=== PATIENT | female | born 1960 | race Caucasian/White ===

== ENCOUNTER → 2019-11-24 12:08 | Outpatient (BNVA) | payer OTHER, SELFPAY | PROVIDERS: Family Provider Family Medicine; PCP Family Medicine; Visit Provider Nurse Practitioner Family | DX: J02.9 Acute pharyngitis, unspecified (principal) | CPT/HCPCS: 87804 ==

== ENCOUNTER 2020-01-02 15:44 | Outpatient (CLI) | payer OTHER, SELFPAY ==
--- NOTE | 2020-01-02 15:53 | MM_ITS ---
WS: [id number] SCREENING DIGITAL MAMMOGRAM WITH CAD HISTORY: SCREENING COMPARISON: 12/07/2018, 03/24/2017 Bilateral CC and MLO views submitted. Computer aided detection analyzed. Breast composition: There are scattered areas of fibroglandular density. No suspicious masses, microc alcifications or architectural distortion. MM/[place] [id number] IMPRESSION: BI-RADS: 1-Negative FOLLOW UP: 1 Year Follow-up
== END 2020-01-02 15:45 | disposition home or self-care (01) ==
PROVIDERS: Family Provider Family Medicine; PCP Family Medicine; Visit Provider Family Medicine
DX: Z12.31 Encounter for screening mammogram for malignant neoplasm of breast (principal)
CPT/HCPCS: 77067

== ENCOUNTER → 2020-04-14 11:31 | Outpatient (BNVA) | payer OTHER, SELFPAY | PROVIDERS: Family Provider Family Medicine; PCP Family Medicine; Visit Provider Nurse Practitioner Family | DX: K52.9 Noninfective gastroenteritis and colitis, unspecified (principal); R39.9 Unspecified symptoms and signs involving the genitourinary system | CPT/HCPCS: 81000; 87086 ==

== ENCOUNTER 2021-02-25 08:27 | Outpatient (CLI) | payer OTHER, SELFPAY ==
--- NOTE | 2021-02-25 08:48 | MM_ITS ---
WS: [id number] BILATERAL DIGITAL SCREENING MAMMOGRAPHY WITH CAD CLINICAL INFORMATION: SCREENING HISTORY: Screening mammogram. No current complaints. COMPARISON: January 02, 2020 TECHNIQUE: Bilateral CC and MLO views. FINDINGS: Scattered fibroglandular densities bilaterally. No suspicious focal mass, asymmetry, calcifications, or architectural distortion. No evidence of malignancy. MM/[place] [id number] IMPRESSION: BI-RADS: 1-Negative FOLLOW UP: 1 Year Follow-up Recommend return to annual screening mammography.
== END 2021-02-25 08:28 | disposition home or self-care (01) ==
PROVIDERS: PCP Family Medicine; Visit Provider Nurse Practitioner Family
DX: Z12.31 Encounter for screening mammogram for malignant neoplasm of breast (principal)
CPT/HCPCS: 77067

== ENCOUNTER 2022-03-16 11:10 | Outpatient (CLI) | payer OTHER, SELFPAY ==
--- NOTE | 2022-03-16 11:24 | MM_ITS ---
WS: [id number] SCREENING TOMOSYNTHESIS DIGITAL MAMMOGRAM WITH CAD HISTORY: SCREENING COMPARISON: 03/24/2017, 12/07/2018 and 02/25/2021 Bilateral CC and MLO views submitted. Computer aided detection analyzed. Breast composition: There are scattered areas of fibroglandular density. Curvilinear area of increase d density in the superior RIGHT breast seen only on the MLO projection. No corresponding abnormality on the CC projection. Due to the significant change since the prior study additional imaging is recom mended. MM/[place] [id number] IMPRESSION: BI-RADS: 0-Incomplete: Need additional imaging evaluation FOLLOW UP: Need Additional Imaging RIGHT breast: Spot compression views (MLO). True ML. Ultrasound to follow if ab normality persists.
== END 2022-03-16 11:11 | disposition home or self-care (01) ==
LOC: RAD 11:13
PROVIDERS: PCP Family Medicine; Visit Provider Family Medicine
DX: Z12.31 Encounter for screening mammogram for malignant neoplasm of breast (principal)
CPT/HCPCS: 77063; 77067

== ENCOUNTER 2022-03-24 14:20 | Outpatient (CLI) | payer OTHER, SELFPAY ==
--- NOTE | 2022-03-24 14:40 | US_ITS ---
WS: [id number] ADDITIONAL VIEWS RIGHT MAMMOGRAM WITH DIGITAL BREAST TOMOSYNTHESIS. RIGHT BREAST ULTRASOUND HISTORY: RT BREAST DENSITY COMPARISON: 03/16/2022, 02/25/2021 and 01/02/2020 RIGHT MAMMOGRAM: Spot compression views and true ML with digital breast tomosynthesis and SM. The asymmetry and increased density persists in the RIGHT breast above the nipple. There is very slig ht distortion. These findings are only identified on the MLO and ML views. RIGHT BREAST ULTRASOUND 2-D and color Doppler imaging submitted. Ultrasound is directed to the RIGHT breast from 10-2 o'clock. There is a band of dense fibroglandular tissue but no mass or shadowing. No cysts. US/US breast RT limited* [id number] IMPRESSION: BI-RADS: 3-Probably Benign FOLLOW UP: 6 Month Follow-up There is a band of increasing soft tissue density in the superior RIGHT breast. This is only seen on the lateral projections. The ultrasound and CC views are normal. There is no discrete mass for which biopsy should be recommended at thi s time. Due to the change in appearance of the breast 6 month RIGHT mammogram a nd possible ultrasound follow-up are recommended. [facility] the time of the examination.
== END 2022-03-24 14:21 | disposition home or self-care (01) ==
PROVIDERS: PCP Family Medicine; Visit Provider Family Medicine
DX: R92.2 Inconclusive mammogram (principal)
CPT/HCPCS: 76642; 77061

== ENCOUNTER 2022-10-02 14:59 | Outpatient (CLI) | payer OTHER, SELFPAY ==
--- NOTE | 2022-10-02 15:24 | MM_ITS ---
WS: [id number] DIAGNOSTIC RIGHT DIGITAL TOMOSYNTHESIS MAMMOGRAPHY WITH CAD. RIGHT breast ultrasound, limited HISTORY: ABNORMAL MAMMO COMPARISON: 03/24/2022, 03/16/2022 and 02/25/2021 Technique: CC, MLO and ML views. Spot compression RIGHT CC and MLO. Breast composition: There are scattered areas of fibroglandular density. Dense band of fibroglandula r tissue along the superior RIGHT breast persists. Very similar to the prior studies. Spot compressio n of the MLO near completely resolves this very dense band. No distortion. No associated mass. RIGHT breast ultrasound, limited. Ultrasound is directed to the superior RIGHT breast from 10-2 o'clock. No suspicious masses. No dist ortion or shadowing. MM/[place] [id number] IMPRESSION: BI-RADS: 2-Benign FOLLOW UP: 6 Month Follow-up Patient to return to annual screening mammography in March 2023. Dense band of fi broglandular tissue is unchanged and considered normal for this patient.
== END 2022-10-02 15:00 | disposition home or self-care (01) ==
PROVIDERS: PCP Family Medicine; Visit Provider Family Medicine
DX: R92.8 Other abnormal and inconclusive findings on diagnostic imaging of breast (principal)
CPT/HCPCS: 76642; 77061; G0279

== ENCOUNTER 2023-03-29 09:33 | Outpatient (CLI) | payer OTHER, SELFPAY ==
--- NOTE | 2023-03-29 09:42 | MM_ITS ---
WS: [id number] SCREENING DIGITAL TOMOSYNTHESIS MAMMOGRAM WITH CAD HISTORY: SCREENING COMPARISON: 10/02/2022, 03/16/2022, 03/24/2022, Bilateral CC and MLO with tomosynthesis views submitted. Synthetic mammography reviewed. Computer aid ed detection analyzed. Breast composition: There are scattered areas of fibroglandular density. No suspicious masses, microc alcifications or architectural distortion. MM/[place] [id number] IMPRESSION: BI-RADS: 1-Negative FOLLOW UP: 1 Year Follow-up
== END 2023-03-29 09:34 | disposition home or self-care (01) ==
LOC: RAD 09:36
PROVIDERS: PCP Family Medicine; Visit Provider Family Medicine
DX: Z12.39 Encounter for other screening for malignant neoplasm of breast (principal)
CPT/HCPCS: 77063; 77067

== ENCOUNTER 2023-06-21 15:34 | Emergency (ER) | payer OTHER, SELFPAY ==
[2023-06-21 15:44] VITALS: BP 156/76; PULSE 84; RESP 16; TEMP 36.4; O2SAT 96; BMI 27.3
--- NOTE | 2023-06-21 15:56 | XRR_ITS ---
PROCEDURE INFORMATION: Exam: XR Right Forearm Exam date and time: 06/21/2023 4:03 PM Age: 62 years old Clinical indication: Injury or trauma; Fall; Blunt trauma (contusions or hematomas); Arm, lower; Right; Additional info: Fall deformity ) TECHNIQUE: Imaging protocol: Radiologic exam of the right forearm. Views: 2 views. COMPARISON: No relevant prior studies available. FINDINGS: Bones/joints: Acute comminuted impacted fracture distal radius with fracture line pronounced aorta horizontally likely extending to the articular surface. There is some overriding and dorsal displacement of the distal fracture component on the lateral view. There is nondisplaced acute fracture of the ulnar styloid process also noted. Remaining osseous structures are intact. Soft tissues: Unremarkable. XR/XR forearm RT 2V [id number] IMPRESSION: Acute comminuted Colles fracture right wrist.
--- NOTE | 2023-06-21 15:57 | W.ED.FALL ---
HPI - Fall General: Chief Complaint: Fall Stated Complaint: right wrist pain due to fall Time Seen by Provider: 06/21/23 15:50 History of Present Illness: Patient presents to the ER with complaints of right wrist pain secondary to a fall. Patient fell on the ground landed on her right wrist now she is unable to bend twist her wrist. Patient has an obvious deformity to the distal forearm. Patient's cap refill still good and intact. There is no loss of consciousness patient has no other complaints at this time. Review of Systems General: Reports: 10 or more systems reviewed and unremarkable except in HPI and below PFSH ED PFSH: Social History Smoking and tobacco status: current every day smoker Alcohol intake: never Substance/Drug Use: never Physical Exam Const: COMMON NORMALS: no acute distress, average body habitus, patient oriented x3, no limitations, healthy appearing, alert and well nourished HENMT: COMMON NORMALS: normocephalic, atraumatic, hearing grossly normal bilaterally, external ears normal, Normal external nose present and moist oral mucous membranes HEAD & SCALP: normocephalic and atraumatic NOSE: Normal external nose present EXTERNAL EAR: Yes external ears normal Neck/C-Spine: COMMON NORMALS: full ROM, no lymphadenopathy, supple, no meningeal signs, no JVD and Thyroid normal THYROID: Thyroid normal Chest: COMMONS NORMALS: normal inspection of the chest and normal palpation of entire chest wall Resp: COMMON NORMALS: normal respiratory effort, No retractions, No use of accessory muscles and clear to auscultation bilaterally AUSCULTATION: clear to auscultation bilaterally Cardio: COMMON NORMALS: no JVD GI: COMMON NORMALS: Normal to inspection, nondistended, normoactive bowel sounds present, Soft to palpation, non-tender, No hepatosplenomegaly present and no masses PALPATION: Yes Soft to palpation and Yes No hepatosplenomegaly present Extremity: NARRATIVE EXTREMITY EXAM: Pain with palpation over right wrist area. Deformity noted. Pain with any attempted range of motion. Neuro: COMMON NORMALS: patient oriented x3 SENSORIUM/ORIENTATION: Yes alert MENINGEAL SIGNS: Yes no meningeal signs Course Vital Signs: Vital signs: Vital Signs Temperature 97.5 F L 06/21/23 15:44 Pulse Rate 84 06/21/23 15:44 Respiratory Rate 16 08/07/23 15:44 Blood Pressure 156/76 06/21/23 15:44 Pulse Oximetry 96 06/21/23 15:44 Oxygen Delivery Me thod Room Air 06/21/23 15:44 MDM - Fall Medical Decision Making Patient presented to the ER with a fall and left wrist pain and deformity. X-ray showed acute comminuted intra-articular fracture of the distal radius with ulnar styloid process fracture. Patient was placed in sugar-tong type splint and sling and given Percocet for pain control. Dr. Petersen was consulted and states she will see the patient on Wednesday probably. Differential Diagnosis Likely fracture of wrist; Unlikely syncope, dislocation of shoulder region, compression fracture, concussion with loss of consciousness or concussion without loss of consciousness Medical Records I reviewed the patient's medical records. Lab Data I reviewed the patient's lab results. Radiology Impressions Forearm X-Ray 06/21/23 15:56 IMPRESSION: Acute comminuted Colles fracture right wrist. Wrist CT 06/21/23 16:37 IMPRESSION: 1. Acute comminuted intra-articular fracture of the distal radius with dorsal angulation at the radiocarpal joint angle. 2. Acute fracture involving the base of the ulnar styloid process. Discharge Plan Discharge Patient Disposition: Home Clinical Impression: Fracture of left wrist Condition: Stable Prescriptions: New Percocet 5-325 mg tablet 1 tab PO Q8H PRN (Reason: pain) Qty: 14 0RF No Action diclofenac sodium 75 mg tablet,delayed release (DR/EC) 75 mg PO BID nitrofurantoin monohyd/m-cryst [Macrobid] 100 mg capsule 100 mg PO BID Rx Instructions: must administer with a meal/food lisinopril 20 mg tablet 20 mg PO ONCE lovastatin 20 mg tablet 20 mg PO ONCE levothyroxine 50 mcg capsule 50 mcg PO ONCE hydrochlorothiazide 25 mg tablet 25 mg PO QAM potassium chloride 20 mEq packet 20 meq PO ONCE ondansetron HCl 4 mg Tablet 4 mg PO Q6H PRN (Reason: Nausea) Discharge Orders: Discharge ED (Routine); Ordered 06/21/23 Ordered By: Randolph Renee Referrals: Leah Powers MD [Primary Care Provider] - 1 week Patient Instructions: Opioid Safety, Pain Management, Wrist Fracture in Adults (ED) Activity Restrictions/Additional Instructions: Please continue to wear your splint at all times. Please call Dr. Cordero's office tomorrow and she will try to schedule a appointment on Wednesday. Please take pain medicine as needed as directed. Coding Level of Care Code ED Vessel Manager for Kiel Cazares
--- NOTE | 2023-06-21 16:37 | CTR_ITS ---
PROCEDURE INFORMATION: Exam: CT Right Upper Extremity Without Contrast, Wrist Exam date and time: 06/21/2023 5:05 PM Age: 62 years old Clinical indication: Injury or trauma; Fall; Fracture, traumatic injury; Closed fracture; Radius; Right; Distal end; Additional info: Right wrist fracture TECHNIQUE: Imaging protocol: Computed tomography of the right upper extremity without contrast. Exam focused on the wrist. Radiation optimization: All CT scans at this facility use at least one of these dose optimization techniques: automated exposure control; mA and/or kV adjustment per patient size (includes targeted exams where dose is matched to clinical indication); or iterative reconstruction. REPORTING DATA: Count of CT and Cardiac NM exams in prior 12 months: This patient has received 0 known CTs and 0 known cardiac nuclear medicine studies in the 12 months prior to the current study. COMPARISON: CR XR forearm RT 2V [id number] 06/21/2023 4:03 PM RADIATION DOSE METRICS: Total DLP (mGy-cm): 79.78 FINDINGS: Bones/joints: Acute comminuted transverse fracture involving the distal radius with a vertical component extending to the dorsal aspect of the articular surface. There is a mild impaction and moderate dorsal angulation of the major distal fracture component. There is no dislocation. There is an acute fracture involving the base of the ulnar styloid process. Remainder of the visualized osseous structures are unremarkable. Small carpal bone cysts within the lunate likely developmental or degenerative in nature. Soft tissues: Mild soft tissue swelling noted at the fracture site. CT/CT wrist RT wo con* [id number] IMPRESSION: 1. Acute comminuted intra-articular fracture of the distal radius with dorsal angulation at the radiocarpal joint angle. 2. Acute fracture involving the base of the ulnar styloid process.
[2023-06-21] MEDS: oxyCODONE-APAP 5-325 mg Tablet 1 TAB PO (17:11)
== END 2023-06-21 18:36 | disposition home or self-care (01) ==
PROVIDERS: Emergency Provider Emergency Medicine; PCP Family Medicine
DX: S52.571A Other intraarticular fracture of lower end of right radius, initial encounter for closed fracture (principal); S52.611A Displaced fracture of right ulna styloid process, initial encounter for closed fracture; F17.210 Nicotine dependence, cigarettes, uncomplicated; W19.XXXA Unspecified fall, initial encounter
CPT/HCPCS: 29125; 73090; 73200; 99284

== ENCOUNTER → 2023-06-23 13:39 | Outpatient (BNVA) | payer OTHER, SELFPAY | PROVIDERS: PCP Family Medicine; Referring Provider Emergency Medicine; Visit Provider Specialist | DX: S52.501A Unspecified fracture of the lower end of right radius, initial encounter for closed fracture; S52.601A Unspecified fracture of lower end of right ulna, initial encounter for closed fracture; W18.30XA Fall on same level, unspecified, initial encounter | CPT/HCPCS: 73110 ==

== ENCOUNTER 2023-06-29 10:21 | Day surgery (SDC) | payer OTHER, SELFPAY ==
[2023-06-28 11:36] VITALS: BMI 26.4
[2023-06-29] VITALS (20 sets, daily range): BP systolic 111–157; BP diastolic 50–84; PULSE 58–77; RESP 11–22; TEMP 36.1–36.6; O2SAT 91–97
--- NOTE | 2023-06-29 | XR_ITS ---
WS: [id number] C-ARM RADIOGRAPHS RIGHT WRIST; 3 IMAGES HISTORY: OR PIC.ORIF right wrist COMPARISON: 06/23/2023 Intraoperative imaging during volar plate and screw fixation distal radial fracture stabilization. IMPRESSION: Intraoperative imaging during fixation distal radial fracture.
[2023-06-29] MEDS: sodium chloride 0.9% 1,000 ML 30 ML IV (11:13)
[2023-06-29] MEDS: CELEcoxib 200 mg Capsule 400 MG PO (11:14)
[2023-06-29] MEDS: gabapentin 300 mg Capsule PO (11:14)
[2023-06-29] MEDS: ondansetron 2 mg/ML SDV 2 mL 4 MG IVP (11:14)
--- NOTE | 2023-06-29 11:19 | ANES.PREANE2 ---
Pre-Anesthetic Assessment Height/Weight: Height 1.52 m Weight 61.235 kg Temp Pulse Resp BP Pulse Ox O2 Del Method 97.8 F 63 16 139/67 95 Room Air 06/29/23 10:35 06/29/23 10:35 06/29/23 10:35 06/29/23 10:35 06/29/23 10:35 06/29/23 10:36 Operation Date: 06/29/23 11:50 Proposed Procedures p ORIF distal radial fracture: 05550,S52.501A(Right) - Shanda Petersen MD Familial anesthetic complications: none Was Beta Madhuri taken within 24 hours: N/A Was Clonidine taken within 24 hours: N/A Last intake: Intake Last Liquid Date 06/28/23 Last Liquid Time 19:00 Last Solid Date 06/28/23 Last Solid Time 19:00 Social Tobacco and No alcohol Exam alert, oriented x 3 and regular rate & rhythm Airway Submandibular: within normal limits Cervical ROM: within normal limits Mallampati: Class II Dentition: partials Pulmonary Chronic Obstructive Pulmonary Disease CV/HEM Hypertension Metabolic Hyperlipidemia and Thyroid Disease Anesthetic Plan ASA status: 3 Anesthesia: General and Regional (specify below) (Discussed right interscalene for postop pain) Medications/Allergies Home Medications Medication Instructions Recorded Confirmed Last Taken Type hydrochlorothiazide 25 mg tablet 25 mg PO QAM 11/24/19 06/28/23 06/29/23 History levothyroxine 50 mcg capsule 50 mcg PO DAILY 11/24/19 06/28/23 06/29/23 History lisinopril 20 mg tablet 20 mg PO DAILY 11/24/19 06/28/23 06/28/23 History 08 lovastatin 20 mg tablet 20 mg PO DAILY 11/24/19 06/28/23 06/28/23 History potassium chloride 20 mEq oral 20 meq PO DAILY 11/24/19 06/28/23 06/29/23 History packet oxycodone-acetaminophen 5 mg-325 1 tab PO Q8H PRN pain #14 tabs 06/21/23 06/28/23 06/29/23 Rx mg tablet (Percocet) alprazolam 0.5 mg tablet 1 mg PO BEDTIME 06/28/23 06/28/23 06/28/23 History Allergies Allergy/AdvReac Type Severity Reaction Status Date / Time cephalexin Allergy rash Verified 06/23/23 13:43 fluoxetine [From Prozac] Allergy rash Verified 06/23/23 13:43 Sulfa (Sulfonamide Allergy rash Verified 06/23/23 13:43 Antibiotics) Current Medications Generic Name Dose Route Start Last Admin Trade Name Freq PRN Reason Stop Dose Admin Sodium Chloride 1,000 mls @ 30 mls/hr 06/29/23 10:30 06/29/23 11:13 Sodium Chloride 0.9% IV 06/30/23 10:29 30 mls/hr .Q24H VINEET Administration Ondansetron HCl 4 mg 06/29/23 10:27 06/29/23 11:14 Ondansetron 2 Mg/Ml Sdv 2 Ml IVP 4 mg Q5M PRN Administration NAUSEA AND VOMITING PFSH Anesthesia Social History Smoking and tobacco status: current every day smoker Alcohol intake: never Substance/Drug Use: never Data Anesthesia 06/29/23 11:00 Cardiac Studies: No Data to Display
[2023-06-29] MEDS: HYDROmorphone 1 mg/mL INJ 1 mL 0.5 MG IVP (11:32)
[2023-06-29] MEDS: acetaminophen 1,000 MG/100 ML PIGGYBACK 400 MG IV (11:32)
--- NOTE | 2023-06-29 11:33 | P.HPUD_ITS ---
Surgery/Procedure H&P Update DATE OF PROCEDURE: June 29, 2023 DATE H&P PERFORMED: 06/23/23 H&P UPDATE INFORMATION: I have reviewed H&P completed within last 30 days, I have examined patient prior to procedure and H&P is in [facility] EMR on date indicated PLANNED PROCEDURE: Operation Date: 06/29/23 11:50 Proposed Procedures p Opemn Reduction, internal fixation right distal radial fracture: 43236,S52. 501A(Right) - Shanda Petersen MD Related Problem List Diagnoses (1) Closed fracture of distal ends of right radius and ulna:
[2023-06-29 11:34] LABS: Anion Gap 14.6 (5-19); Blood Urea Nitrogen 17 mg/dL (8-23); Calcium 9.2 mg/dL (8.5-10.5); Carbon Dioxide 28 mmol/L (22-29); Chloride 104 mmol/L (98-107); Glucose 94 mg/dL (65-115); Osmolality Calculated 295 mOsm/kg (285-295); Potassium 4.6 mmol/L (3.5-5.1); Sodium 142 mmol/L (136-145)
[2023-06-29] MEDS: scopolamine 1.5 Patch 1 PATCH TRANSDERMA (11:42)
[2023-06-29] MEDS: vancomycin 1,000 MG in sodium chloride 0.9% 250 ML 250 MG IV (12:07)
[2023-06-29] MEDS: BUPivacaine 0.5% INJ 30 mL INJECTION (12:49)
--- NOTE | 2023-06-29 13:50 | P.OP_ITS ---
Operative Report Date of procedure: June 29, 2023 Pre-op diagnosis: Right distal radius and ulnar styloid fractures Post-op diagnosis: Right distal radius and ulnar styloid fractures Post-op findings: Shortening of distal radius relative to the ulna Procedure done: Open reduction internal fixation right distal radius fracture Implants: The Valorie distal radius volar plate extra short narrow Specimens removed/disposition: None Surgeon: Shanda Petersen [facility] Director: None Anesthesia: General (Per LMA, ASA 3) Estimated blood loss (mL): 5 Tourniquet time (min): 50 (At 250 mmHg) IV fluids (mL): 600 Urine output (mL): 0 (No Gipson) Complications: None Findings: Shortening and significant dorsal displacement of the distal fragment Condition: stable Disposition: PACU (Then return to same-day surgery for discharge to home) Brief History: Iram Peterson is a 62 year old female patient who presents today for open reduction internal fixation of right distal radius and ulnar styloid fracture. Patient states she fell on Wednesday06/21/23. She landed with her hands outstretched. Upon review of x-rays at the office, the patient was found to have some radial shortening, dorsal displacement of the distal fragment, and minimal angulation. After discussion with the patient and her daughter, we elected to proceed with open reduction internal fixation was planned to allow the patient to move more quickly, but also, restore the length of the radius. Procedure: Patient was brought to the operating theater, and after undergoing adequate general anesthesia, LMA, ASA 3, the patient's right upper extremity was prepped and draped in usual fashion utilizing DuraPrep.? The patient had a tourniquet placed high on the arm prior to prepping and draping.? Following prepping and draping, the arm was exsanguinated and the tourniquet was elevated.? Total tourniquet time was 50 minutes at 250 mmHg.? Prior to commencement of the surgical procedure, a surgical pause was performed.? At the time of the surgical pause, we confirmed the site and side of surgery as well as the patient's identity and preoperative surgical markings.? We also confirmed availability of equipment and appropriate preoperative IV antibiotics which was vancomycin 1 g.? Fluoroscopy was also brought into position so that we could visualize the fracture and hardware throughout the surgical procedure.? The fracture was evaluated prior to tourniquet placement. Following elevation of the tourniquet as well as the surgical pause, appropriate plate was chosen. The skin was marked for appropriate incision length and location. An incision was made along the palmaris longus and continued down onto the volar surface of the radius.? Care was taken to avoid injury throughout the surgical procedure to the median nerve as well as to the radial artery.? The flexor carpi radialis was retracted medially.? We were able to essentially elevate the sheath of the flexor carpi radialis, and then I was able to place my finger directly onto the distal radius.? For the most part, the patient did her own dissection at the time of her injury.? Soft tissues were elevated off the distal radius to allow access to the fracture and also to the volar aspect of the distal radial shaft.? Reduction required manipulation, and following manipulation, the fracture was essentially anatomic.? We were able to bring the distal fragment volarly and lock it somewhat over the more proximal fragment to give better position and length. With this reduction, length was restored. Fluoroscopy was used to determine whether or not the reduction was appropriate.? We were able to reduce the fracture nearly anatomically.? We then evaluated the plate and chose the extra short narrow Fleming volar distal radius plate.? The plate was attached proximally and distally without difficulty.? A combination of locking and 1 nonlocking screw was utilized to attach the plate.? We had excellent fixation and reduction of the fracture. Fluoroscopy was utilized during the procedure.? Once the plate was fully attached, we had a near anatomic position to the distal radius and the distal radius was out to length.? Being satisfied with position, the area was copiously irrigated. There were no fascial tissues to close, and therefore, we closed the subcutaneous tissues with 2-0 interrupted Monocryl.? Skin was closed in a subcuticular fashion with 3-0 Monocryl.?Sterile dressing was then placed consisting of Dermabond, Steri-Strips, OpSite, fluffed fluffs, sterile soft roll, a volar splint, and an Vikash wrap. The tourniquet was released after 50 minutes. There were no complications. There were no specimens. The procedure was well tolerated. Plan is the patient will be discharged home. Related Problem List Diagnoses (1) Closed fracture of distal ends of right radius and ulna:
[2023-06-29] MEDS: fentaNYL 50 mcg/mL INJ 2mL IVP ×2 (14:01→14:11)
--- NOTE | 2023-06-29 14:16 | PC.NURSE ---
C/O pain right elbow. Medicated per orders. Right arm Elevated on pillow. Dr. Duval @ bedside to administer a block right arm
--- NOTE | 2023-06-29 14:28 | PC.NURSE ---
Nerve block procedure completed. Patient awake and following directions
--- NOTE | 2023-06-29 14:48 | ANES.PROC ---
Anesthesia Procedures Procedure/Date: 06/29/23 Nerve Block ^: Nerve Block 1: Main Anesthesia: general anesthesia Time Out Performed: Yes Consent: requested by attending/covering physician, from patient, risks and benefits reviewed and patient agrees to proceed Nerve block location: interscalene (right) Anesthesia monitors applied: pulse oximetry, EKG, BP cuff and oxygen Nerve block position: semi sitting Anesthetic Used: ropivicaine 0.5% Amount of anesthesia used (mL): 30 Ultrasound used to: recognize landmarks and visualize and ID brachial plexus Nerve Stimulator Used?: No Interscalene/Femoral BLK: 2 stimuplex 22 g needle used for position and inplane approach Injection: neg aspiration of heme Patient Tolerated Procedure: well Complications: none
--- NOTE | 2023-06-29 15:21 | SUR.PHASEII ---
15:00 ROM AND SENSATION PRESENT IN RIGHT HAND AND FINGERS.
--- NOTE | 2023-06-29 16:12 | ANE.PACU2 ---
Inpatient post-anesthesia follow up: Airway intact: Yes Vital signs: Temperature 97.7 F Pulse Rate 64 Respiratory Rate 14 Blood Pressure 111/50 Pulse Oximetry 92 Oxygen Delivery Me thod Room Air Oxygen Flow Rate 2 Fraction of Inspir ed Oxygen Hydration adequate: Yes Nausea and vomiting: No Pain level: 1 Mental status: Baseline
== END 2023-06-29 16:05 | disposition home or self-care (01) ==
PROVIDERS: Anesthesiology; PCP Family Medicine; Visit Provider Specialist
PROC: (CPT 25608; principal; 2023-06-29 11:40)
DX: S52.511A Displaced fracture of right radial styloid process, initial encounter for closed fracture (principal); I10 Essential (primary) hypertension; E78.5 Hyperlipidemia, unspecified; J44.9 Chronic obstructive pulmonary disease, unspecified; F17.200 Nicotine dependence, unspecified, uncomplicated; Z79.899 Other long term (current) drug therapy; Z88.2 Allergy status to sulfonamides; Z88.0 Allergy status to penicillin; W19.XXXA Unspecified fall, initial encounter
CPT/HCPCS: 25608; 36415; 73100; 76000; 80048; C1713; J0131; J1100; J1170; J1200; J2405; J2704; J2795; J3010; J3370; J3490; J7030; J7050

== ENCOUNTER → 2023-07-14 09:11 | Outpatient (BNVA) | payer OTHER, SELFPAY | PROVIDERS: PCP Family Medicine; Visit Provider Nurse Practitioner Family | DX: S52.501A Unspecified fracture of the lower end of right radius, initial encounter for closed fracture (principal); S52.601A Unspecified fracture of lower end of right ulna, initial encounter for closed fracture; X58.XXXA Exposure to other specified factors, initial encounter; Z71.6 Tobacco abuse counseling | CPT/HCPCS: 73110 ==

== ENCOUNTER → 2023-07-26 09:08 | Outpatient (BNVA) | payer OTHER, SELFPAY | PROVIDERS: PCP Family Medicine; Visit Provider Nurse Practitioner Family | DX: S52.501A Unspecified fracture of the lower end of right radius, initial encounter for closed fracture (principal); S52.601A Unspecified fracture of lower end of right ulna, initial encounter for closed fracture; X58.XXXA Exposure to other specified factors, initial encounter | CPT/HCPCS: 73110 ==

== ENCOUNTER → 2023-08-31 08:48 | Outpatient (BNVA) | payer OTHER, SELFPAY | PROVIDERS: PCP Family Medicine; Visit Provider Physician Assistant | DX: S52.501D Unspecified fracture of the lower end of right radius, subsequent encounter for closed fracture with routine healing; S52.601D Unspecified fracture of lower end of right ulna, subsequent encounter for closed fracture with routine healing; X58.XXXD Exposure to other specified factors, subsequent encounter | CPT/HCPCS: 73110 ==

== ENCOUNTER → 2023-10-04 10:27 | Outpatient (BNVA) | payer OTHER, SELFPAY | PROVIDERS: PCP Family Medicine; Visit Provider Nurse Practitioner | DX: S52.501D Unspecified fracture of the lower end of right radius, subsequent encounter for closed fracture with routine healing; S52.601D Unspecified fracture of lower end of right ulna, subsequent encounter for closed fracture with routine healing; M65.341 Trigger finger, right ring finger; X58.XXXD Exposure to other specified factors, subsequent encounter | CPT/HCPCS: 73100 ==

== ENCOUNTER → 2023-12-10 08:01 | Outpatient (BNVA) | payer MEDICARE, OTHER, SELFPAY | PROVIDERS: PCP Family Medicine; Visit Provider Nurse Practitioner | DX: S52.501D Unspecified fracture of the lower end of right radius, subsequent encounter for closed fracture with routine healing (principal); S52.601D Unspecified fracture of lower end of right ulna, subsequent encounter for closed fracture with routine healing; M65.341 Trigger finger, right ring finger; X58.XXXD Exposure to other specified factors, subsequent encounter | CPT/HCPCS: 73110; 99213 ==

== ENCOUNTER 2024-05-15 11:41 | Outpatient (CLI) | payer MEDICARE, OTHER, SELFPAY ==
--- NOTE | 2024-05-15 11:48 | MM_ITS ---
WS: [id number] BILATERAL SCREENING DIGITAL TOMOSYNTHESIS MAMMOGRAM WITH CAD HISTORY: SCREENING COMPARISON: 03/29/2023, 10/02/2022 Bilateral CC and MLO views with tomosynthesis and synthetic mammography submitted. Computer aided det ection analyzed. Breast composition: There are scattered areas of fibroglandular density. No suspicious masses, microc alcifications or architectural distortion. The area of asymmetry along the 12:00 axis of the RIGHT br east just again identified and stable. MM/[place] [id number] IMPRESSION: BI-RADS: 2-Benign FOLLOW UP: 1 Year Follow-up
== END 2024-05-15 11:42 | disposition home or self-care (01) ==
PROVIDERS: PCP Family Medicine; Visit Provider Family Medicine
DX: Z12.31 Encounter for screening mammogram for malignant neoplasm of breast (principal); R92.323 Mammographic fibroglandular density, bilateral breasts; N64.89 Other specified disorders of breast
CPT/HCPCS: 77063; 77067

== ENCOUNTER → 2024-05-26 07:41 | Outpatient (BNVA) | payer MEDICARE, OTHER, SELFPAY | PROVIDERS: PCP Family Medicine; Visit Provider Surgery | DX: Z12.11 Encounter for screening for malignant neoplasm of colon (principal) | CPT/HCPCS: 99024; 99204 ==

== ENCOUNTER 2024-07-04 13:13 | Outpatient (CLI) | payer MEDICARE, OTHER, SELFPAY ==
--- NOTE | 2024-07-04 13:17 | XR_ITS ---
WS: [id number] SCREENING DEXA SCAN Pretty in my Pocket (PRIMP) CLINICAL INFORMATION: ASYMPTOMATIC MENOPAUSAL STATE COMPARISON: None. FINDINGS: The L1-L4 bone mineral density measures 0.948 g/cm2. This corresponds to a T score score of -1.9 and Z score of -0.5. Left femoral neck bone mineral density measures 0.651 g/cm2. This corresponds to a T score of -2.8 an d Z score of -1.7. Right femoral neck bone mineral density measures 0.639 g/cm2. This corresponds to a T score -2.9of an d Z score of -1.8. Mean femoral neck bone mineral density measures 0.645 g/cm2. This corresponds to a T score of -2.9 an d Z score of -1.7. XR/XR DEXA axial skeleton* [id number] IMPRESSION: Osteopenia lumbar spine. Osteoporosis femoral necks. Patient's FRAX calculated 10 year probability for major osteoporotic fracture i s 20.5% and osteoporotic hip fracture is 9.6%.
== END 2024-07-04 13:14 | disposition home or self-care (01) ==
LOC: RAD 13:14
PROVIDERS: PCP Family Medicine; Visit Provider Family Medicine
DX: Z78.0 Asymptomatic menopausal state (principal); M85.88 Other specified disorders of bone density and structure, other site; M81.0 Age-related osteoporosis without current pathological fracture
CPT/HCPCS: 77080

== ENCOUNTER → 2024-07-08 18:44 | Outpatient (BNVA) | payer MEDICARE, OTHER, SELFPAY | PROVIDERS: PCP Family Medicine; Visit Provider Emergency Medicine | DX: R39.9 Unspecified symptoms and signs involving the genitourinary system (principal) | CPT/HCPCS: 81000 ==

== ENCOUNTER 2024-07-19 07:10 | Day surgery (SDC) | payer MEDICARE, OTHER, SELFPAY ==
[2024-07-19 07:22] VITALS: BP 144/85; PULSE 70; RESP 18; TEMP 36.2; O2SAT 98
[2024-07-19] MEDS: sodium chloride 0.9% 1,000 ML 30 ML IV (07:34)
--- NOTE | 2024-07-19 08:07 | P.ANESASSM_ITS ---
Pre-Anesthetic Assessment Height/Weight: Height 1.52 m Weight 68.039 kg Temp Pulse Resp BP Pulse Ox O2 Del Method 97.2 F L 70 18 144/85 98 Room Air 07/19/24 07:22 07/19/24 07:22 07/19/24 07:22 07/19/24 07:22 07/19/24 07:22 07/19/24 07:22 Preop Diagnosis: screening Operation Date: 07/19/24 08:15 Proposed Procedures p Colonoscopy 77853, Z12.11 [id number](Not Applicable) - Al Hogan, DO Was Beta Madhuri taken within 24 hours: N/A Was Clonidine taken within 24 hours: N/A Last intake: Intake Last Liquid Date 07/18/24 Last Liquid Time 20:30 Last Solid Date 07/17/24 Last Solid Time 20:30 Social No alcohol and No tobacco Exam alert, oriented x 3 and clear to auscultation bilaterally Airway Mallampati: Class II Dentition: full History/ROS No significant history except as noted Pulmonary None reported CV/HEM Hypertension None reported Hepatic None reported GI None reported Metabolic [place]roid Disease [facility] [place] None reported Neuropsych None reported Anesthetic Plan ASA status: 2 Anesthesia: Anesthesia Evaluation and MAC Risk of > 500 ml blood loss (7ml/kg in children): No Medications/Allergies Home Medications Medication Instructions Recorded Confirmed Last Taken Type hydrochlorothiazide 25 mg tablet 25 mg PO QAM 11/24/19 07/13/24 07/18/24 History levothyroxine 50 mcg capsule 50 mcg PO DAILY 11/24/19 07/13/24 07/19/24 History lisinopril 20 mg tablet 20 mg PO DAILY 11/24/19 07/13/24 07/18/24 History lovastatin 20 mg tablet 20 mg PO DAILY 11/24/19 07/13/24 07/18/24 History potassium chloride 20 mEq oral 20 meq PO DAILY 11/24/19 07/13/24 07/18/24 History packet alprazolam 0.5 mg tablet 1 mg PO BEDTIME 06/28/23 07/13/24 07/18/24 History ciprofloxacin HCl 500 mg tablet 500 mg PO Q12H 10 days #20 tabs 07/08/24 07/13/24 07/18/24 Rx (Cipro) fluconazole 150 mg tablet 150 mg PO Q3D 2 doses #2 tabs 07/08/24 07/13/24 07/18/24 Rx Allergies Allergy/AdvReac Type Severity Reaction Status Date / Time cephalexin Allergy rash Verified 07/13/24 11:04 fluoxetine [From Prozac] Allergy rash Verified 07/13/24 11:04 Sulfa (Sulfonamide Allergy rash Verified 07/13/24 11:04 Antibiotics) Current Medications Generic Name Dose Route Start Last Admin Trade Name Freq PRN Reason Stop Dose Admin Sodium Chloride 1,000 mls @ 30 mls/hr 07/19/24 07:15 07/19/24 07:34 Sodium Chloride 0.9% IV 07/20/24 07:14 30 mls/hr .Q24H VINEET Administration PFSH Anesthesia Medical History Trigger finger, right ring finger Social History Smoking and tobacco/nicotine status: unknown if used tobacco/nicotine Alcohol intake: never Substance/Drug Use: never Data Anesthesia Cardiac Studies: No Data to Display
--- NOTE | 2024-07-19 08:21 | PM.HP ---
Providers/Chief Complaint Primary Care Provider: Leah Powers MD Chief Complaint: Z12.11 History of Present Illness Iram Peterson is a 63 year old female Review of Systems General: Reports: 10 or more systems reviewed and unremarkable except in HPI and below Medications/Allergies Home Medications Medication Instructions Recorded Confirmed Last Taken Type hydrochlorothiazide 25 mg tablet 25 mg PO QAM 11/24/19 07/13/24 07/18/24 History levothyroxine 50 mcg capsule 50 mcg PO DAILY 11/24/19 07/13/24 07/19/24 History lisinopril 20 mg tablet 20 mg PO DAILY 11/24/19 07/13/24 07/18/24 History lovastatin 20 mg tablet 20 mg PO DAILY 11/24/19 07/13/24 07/18/24 History potassium chloride 20 mEq oral 20 meq PO DAILY 11/24/19 07/13/24 07/18/24 History packet alprazolam 0.5 mg tablet 1 mg PO BEDTIME 06/28/23 07/13/24 07/18/24 History ciprofloxacin HCl 500 mg tablet 500 mg PO Q12H 10 days #20 tabs 07/08/24 07/13/24 07/18/24 Rx (Cipro) fluconazole 150 mg tablet 150 mg PO Q3D 2 doses #2 tabs 07/08/24 07/13/24 07/18/24 Rx Allergies Allergy/AdvReac Type Severity Reaction Status Date / Time cephalexin Allergy rash Verified 07/13/24 11:04 fluoxetine [From Prozac] Allergy rash Verified 07/13/24 11:04 Sulfa (Sulfonamide Allergy rash Verified 07/13/24 11:04 Antibiotics) PFSH Acute PFSH: Medical History Trigger finger, right ring finger Social History Smoking and tobacco/nicotine status: unknown if used tobacco/nicotine Alcohol intake: never Substance/Drug Use: never Vitals/I&O/Wt Last Vital Signs Temp 97.2 F L 07/19/24 07:22 Pulse 70 07/19/24 07:22 Resp 18 07/19/24 07:22 BP 144/85 07/19/24 07:22 Pulse Ox 98 07/19/24 07:22 O2 Del Method Room Air 07/19/24 07:22 Weight last 48 hrs Weight 150 lb A&P Assessment and plan (1) Colon cancer screening: Plan Colonoscopy Attestations Medical Necessity Statement*: Home Coding Level of Care Code Acute Code for Chg Fwd Diagnoses Colon cancer screening Z12.11
[2024-07-19 08:39] VITALS: BP 115/58; PULSE 65; RESP 16; TEMP 36.1; O2SAT 96
[2024-07-19 08:44] VITALS: BP 126/65; PULSE 60; RESP 18; O2SAT 96
--- NOTE | 2024-07-19 09:10 | ANE.PACU2 ---
Inpatient post-anesthesia follow up: Airway intact: Yes Vital signs: Temperature 97.0 F Pulse Rate 60 Respiratory Rate 18 Blood Pressure 126/65 Pulse Oximetry 96 Oxygen Delivery Me thod Room Air Oxygen Flow Rate Fraction of Inspir ed Oxygen Hydration adequate: Yes Nausea and vomiting: No Pain level: 1 Mental status: Baseline
== END 2024-07-19 09:12 | disposition home or self-care (01) ==
PROVIDERS: PCP Family Medicine; Visit Provider Surgery
PROC: 0DJD8ZZ Inspection of Lower Intestinal Tract, Via Natural or Artificial Opening Endoscopic (ICD-10-PCS; CPT 45378; principal; 2024-07-19 08:15)
DX: Z12.11 Encounter for screening for malignant neoplasm of colon (principal); K64.8 Other hemorrhoids; Q27.30 Arteriovenous malformation, site unspecified; I10 Essential (primary) hypertension
CPT/HCPCS: G0121; J2704; J3490; J7030

== ENCOUNTER → 2024-11-23 13:44 | Outpatient (BNVA) | payer MEDICARE, OTHER, SELFPAY | PROVIDERS: PCP Family Medicine; Referring Provider Family Medicine; Visit Provider Dermatology | DX: C44.722 Squamous cell carcinoma of skin of right lower limb, including hip (principal); L82.1 Other seborrheic keratosis; L81.4 Other melanin hyperpigmentation; B07.8 Other viral warts; D23.71 Other benign neoplasm of skin of right lower limb, including hip; L82.0 Inflamed seborrheic keratosis; L57.0 Actinic keratosis | CPT/HCPCS: 17000; 17110; 99203 ==

== ENCOUNTER → 2024-11-27 12:48 | Outpatient (BNVA) | payer MEDICARE, OTHER, SELFPAY | PROVIDERS: PCP Family Medicine; Visit Provider Dermatology | DX: C44.722 Squamous cell carcinoma of skin of right lower limb, including hip (principal) | CPT/HCPCS: 17313 ==

== ENCOUNTER → 2024-12-11 12:52 | Outpatient (BNVA) | payer MEDICARE, OTHER, SELFPAY | PROVIDERS: PCP Family Medicine; Visit Provider Dermatology | DX: Z48.817 Encounter for surgical aftercare following surgery on the skin and subcutaneous tissue (principal) | CPT/HCPCS: 15271; Q4186 ==

== ENCOUNTER → 2024-12-19 10:52 | Outpatient (BNVA) | payer MEDICARE, OTHER, SELFPAY | PROVIDERS: PCP Family Medicine; Visit Provider Dermatology | DX: Z48.817 Encounter for surgical aftercare following surgery on the skin and subcutaneous tissue (principal) | CPT/HCPCS: 15271; Q4186 ==

== ENCOUNTER → 2024-12-26 14:50 | Outpatient (BNVA) | payer MEDICARE, OTHER, SELFPAY | PROVIDERS: PCP Family Medicine; Visit Provider Dermatology | DX: C44.722 Squamous cell carcinoma of skin of right lower limb, including hip (principal) | CPT/HCPCS: 15271; Q4186 ==

== ENCOUNTER → 2024-12-28 10:00 | Outpatient (BNVA) | payer MEDICARE, OTHER, SELFPAY | PROVIDERS: PCP Family Medicine; Visit Provider Registered Nurse Neonatal Intensive Care | DX: R31.9 Hematuria, unspecified (principal); R39.9 Unspecified symptoms and signs involving the genitourinary system | CPT/HCPCS: 81000; 87086 ==

== ENCOUNTER → 2025-01-02 09:17 | Outpatient (BNVA) | payer MEDICARE, OTHER, SELFPAY | PROVIDERS: PCP Family Medicine; Visit Provider Dermatology | DX: C44.722 Squamous cell carcinoma of skin of right lower limb, including hip (principal) | CPT/HCPCS: 15271 ==

== ENCOUNTER → 2025-01-09 10:48 | Outpatient (BNVA) | payer MEDICARE, OTHER, SELFPAY | PROVIDERS: PCP Family Medicine; Visit Provider Dermatology | DX: C44.722 Squamous cell carcinoma of skin of right lower limb, including hip (principal) | CPT/HCPCS: 15271 ==

== ENCOUNTER → 2025-01-17 10:35 | Outpatient (BNVA) | payer MEDICARE, OTHER, SELFPAY | PROVIDERS: PCP Family Medicine; Visit Provider Dermatology | DX: Z48.817 Encounter for surgical aftercare following surgery on the skin and subcutaneous tissue (principal) | CPT/HCPCS: 99212 ==

== ENCOUNTER → 2025-02-06 12:55 | Outpatient (BNVA) | payer MEDICARE, OTHER, SELFPAY | PROVIDERS: PCP Family Medicine; Visit Provider Dermatology | DX: L82.1 Other seborrheic keratosis (principal); L81.4 Other melanin hyperpigmentation; Z48.817 Encounter for surgical aftercare following surgery on the skin and subcutaneous tissue; D48.5 Neoplasm of uncertain behavior of skin; L57.0 Actinic keratosis | CPT/HCPCS: 11102; 17000; 99213 ==

== ENCOUNTER → 2025-05-14 14:31 | Outpatient (BNVA) | payer MEDICARE, OTHER, SELFPAY | PROVIDERS: PCP Family Medicine | DX: R39.9 Unspecified symptoms and signs involving the genitourinary system (principal); N39.0 Urinary tract infection, site not specified | CPT/HCPCS: 81000; 87086 ==

== ENCOUNTER 2025-07-24 16:47 | Outpatient (CLI) | payer MEDICARE, OTHER, SELFPAY ==
--- NOTE | 2025-07-24 16:55 | CT_ITS ---
WS: [id number] LDCT LUNG CANCER SCREENING TECHNIQUE: Noncontrast CT of the chest with coronal and sagittal reformatted images. CLINICAL INFORMATION: PERSONAL HISTORY OF NICOTINE DEPENDENCE COMPARISON: None. DLP: 59.81 mGy.cm DIvol: Mean CTDIvol: 1.20 (mGy) All CT scans at [facility] use at least one of these dose optimization techniques: automated exposure control; mA and/or kV adjustment per patient size (includes targeted exams where dose is matched to clinical indication); or iterative reconstruction. FINDINGS: Fibrosis in the lung apices. A few calcified granulomas. No suspicious pulmonary parenchymal abnormalities. Aortic calcification. Coronary calcification. No mediastinal or hilar lymphadenopathy. Calcified LEFT hilar and AP window lymph nodes. No mediastinal or hilar lymphadenopathy. Adrenal glands are normal. Small esophageal hiatal hernia. CT/CT lung screening [id number] IMPRESSION: LUNG-RADS: 1-Negative FOLLOW UP: 12 Month: Continue annual screening with LDCT
== END 2025-07-24 16:48 | disposition home or self-care (01) ==
LOC: RAD 16:49
PROVIDERS: PCP Family Medicine; Visit Provider Nurse Practitioner Family
DX: Z12.2 Encounter for screening for malignant neoplasm of respiratory organs (principal); Z87.891 Personal history of nicotine dependence; J84.10 Pulmonary fibrosis, unspecified; J98.4 Other disorders of lung; I89.8 Other specified noninfective disorders of lymphatic vessels and lymph nodes; K44.9 Diaphragmatic hernia without obstruction or gangrene
CPT/HCPCS: 71271

== ENCOUNTER → 2025-08-06 10:54 | Outpatient (BNVA) | payer MEDICARE, OTHER, SELFPAY | PROVIDERS: PCP Family Medicine; Visit Provider Dermatology | DX: L82.1 Other seborrheic keratosis (principal); L81.4 Other melanin hyperpigmentation; Z08 Encounter for follow-up examination after completed treatment for malignant neoplasm; Z85.828 Personal history of other malignant neoplasm of skin; L82.0 Inflamed seborrheic keratosis; L29.89 Other pruritus; L53.8 Other specified erythematous conditions; D48.5 Neoplasm of uncertain behavior of skin; L91.8 Other hypertrophic disorders of the skin; R20.8 Other disturbances of skin sensation | CPT/HCPCS: 11102; 11200; 17110; 99213 ==

== ENCOUNTER 2025-08-08 08:03 | Outpatient (CLI) | payer MEDICARE, OTHER, SELFPAY ==
--- NOTE | 2025-08-08 08:10 | MM_ITS ---
WS: [id number] BILATERAL SCREENING DIGITAL TOMOSYNTHESIS MAMMOGRAM WITH CAD HISTORY: SCREENING COMPARISON: 05/15/2024, 03/29/2023, 10/02/2022 Bilateral CC and MLO views with tomosynthesis and synthetic mammography submitted. Computer aided detection analyzed. Breast composition: There are scattered areas of fibroglandular density. No suspicious masses, microcalcifications or architectural distortion. MM/MM scr BI tomosynthesis [id number] IMPRESSION: BI-RADS: 1 - Negative. FOLLOW UP: 1 Year Follow-up
== END 2025-08-08 08:04 | disposition home or self-care (01) ==
LOC: RAD 08:05
PROVIDERS: PCP Nurse Practitioner Family; Visit Provider Nurse Practitioner Family
DX: Z12.31 Encounter for screening mammogram for malignant neoplasm of breast (principal); R92.323 Mammographic fibroglandular density, bilateral breasts
CPT/HCPCS: 77063; 77067